=== PATIENT | male | born 1970 | race Caucasian/White ===

== ENCOUNTER 2019-12-08 11:30 | Emergency (ER) | payer OTHER, SELFPAY ==
[2019-12-08] VITALS (14 sets, daily range): BP systolic 74–132; BP diastolic 46–82; PULSE 53–72; RESP 14–22; O2SAT 97–100; BMI 28.0
[2019-12-08] MEDS: SODIUM CHLORIDE 0.9% 1,000 ML 1000 ML IV (11:40)
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
[2019-12-08 11:57] LABS: Add Manual Diff / Slide Review NO; Basophils Absolute Auto 0 /uL (0-100); Basophils Percent Auto 0.2 % (0-2); Eosinophils Absolute Auto 200 /uL (0-450); Eosinophils Percent Auto 2.5 % (2-4); Hematocrit 42.1 % (41-53); Hemoglobin 14.6 g/dL (13.5-17.5); Lymphocytes Absolute Auto 1400 /uL (1100-4500); Lymphocytes Percent Auto 18.2 % (25-40); Mean Corpuscular HGB Conc 34.7 % (30-36); Mean Corpuscular Hemoglobin 31.4 PG (26-34); Mean Corpuscular Volume 90.5 fL (80-100); Monocytes Absolute Auto 600 /uL (0-900); Monocytes Percent Auto 7.5 % (3-14); Neutrophils Absolute Auto 5600 /uL (1500-7000); Neutrophils Percent Auto 71.6 % (50-75); Platelet Count 213 X10^3/uL (150-400); Red Blood Cell Count 4.65 X10^6/uL (4.5-5.9); Red Cell Distribution Width 13.5 % (11.6-14.8); White Blood Cell Count 7.8 X10^3/uL (4.5-11.0)
[2019-12-08] MEDS: KETOROLAC 60 MG/2 ML VIAL 30 MG IV (11:58)
--- NOTE | 2019-12-08 12:00 | ED_ITS ---
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 Days Qty: 10 RF: 0 Referrals: Sony Hare MD [Primary Care Provider] - Marj Hopper MD [Physician] - (Comminuted clavicle fracture)
[2019-12-08 12:09] LABS: Alanine Aminotransferase 24 IU/L (<50); Albumin 4.4 g/dL (3.5-5.0); Albumin Globulin Ratio 1.7 (1.0-2.8); Alkaline Phosphatase 59 U/L (38-126); Aspartate Aminotransferase 37 IU/L (17-59); BUN Creatinine Ratio 13.3 (6-22); Bilirubin Total 1.5 mg/dL (0.2-1.3); Blood Urea Nitrogen 16 mg/dL (9-20); Calcium 9.9 mg/dL (8.4-10.2); Carbon Dioxide 29 mmol/L (22-32); Chloride 105 mmol/L (98-107); Creatine Kinase 354 U/L (55-170); Estimated Glomerular Filt Rate > 60.0 mL/min (>60); Globulin 2.6 g/dL (1.7-4.1); Glucose 117 mg/dL (70-100); HEMOLYSIS < 15 (0-50); Potassium 3.8 mmol/L (3.4-5.1); Sodium 140 mmol/L (137-145)
[2019-12-08 12:21] LABS: Troponin I < 0.012 ng/mL (0.01-0.034)
[2019-12-08 12:25] LABS: CKMB % Relative Index 0.3 % (1.5-5.0); Creatine Kinase MB 0.91 ng/mL (<2.37)
--- NOTE | 2019-12-08 14:11 | PC.NURSE ---
Patient was able to ambulate around the department without lightheadedness or dizziness. His vital signs were stable. He was able to eat crackers and juice without abdominal pain, nausea or vomiting. He was fitted with a large sling and reported that it was comfortable.
== END 2019-12-08 14:11 | disposition home or self-care (01) ==
PROVIDERS: Emergency Provider Nurse Practitioner; PCP Family Medicine
DX: S42.022A Displaced fracture of shaft of left clavicle, initial encounter for closed fracture (principal); I95.9 Hypotension, unspecified; R61 Generalized hyperhidrosis; R07.9 Chest pain, unspecified; V19.3XXA Pedal cyclist (driver) (passenger) injured in unspecified nontraffic accident, initial encounter
CPT/HCPCS: 36415; 70450; 71045; 72125; 73030; 73060; 80053; 82550; 82553; 84484; 85025; 86850; 86900; 86901; 93005; 96361; 96374; 99284; 99285; J1885

== ENCOUNTER → 2019-12-18 14:50 | Outpatient (CLI) | payer OTHER, SELFPAY ==
[2019-12-19 12:17] LABS: COVID19 Sendout Not Detected (Not Detect)
== END ==
PROVIDERS: PCP Family Medicine; Visit Provider Physician Assistant
DX: Z01.812 Encounter for preprocedural laboratory examination (principal)
CPT/HCPCS: 87635

== ENCOUNTER 2019-12-21 10:49 | Day surgery (SDC) | payer OTHER, SELFPAY ==
[2019-12-18 14:28] VITALS: BMI 28.5
[2019-12-21] VITALS (7 sets, daily range): BP systolic 93–136; BP diastolic 51–84; PULSE 62–80; RESP 12–16; TEMP 36.2–36.6; O2SAT 96–100; BMI 27.9
--- NOTE | 2019-12-21 | DI.RAD.S_ITS ---
PROCEDURE: XR CLAVICLE LT INDICATIONS: CLAVICAL REPAIR TECHNIQUE: The four intraoperative fluoroscopic images of the left clavicle. COMPARISON: [facility] MARGE Dorman, XR CLAVICLE LEFT, 12/14/2019, 16:03. FINDINGS: These images demonstrate open repair and internal reduction of the previously seen displaced and comminuted left clavicle fracture, by means of a plate and screw hardware construct. Hardware is in appropriate expected position with no evidence of an acute comp getting hardware feature. IMPRESSION: Expected appearance of left clavicle ORIF. Dictated by: Trenton Arteaga M.D. on 12/21/2019 at 15:14 Approved by: Trenton Arteaga M.D. on 12/21/2019 at 15:15
[2019-12-21] MEDS: LACTATED RINGERS 1,000 ML 42 ML IV ×2 (11:42→13:52)
--- NOTE | 2019-12-21 12:31 | PM.PREOP ---
Pre-operative Note COVID-19 COVID-19 status: Negative Interval Note History & Physical reviewed/Exam performed by Physician: Yes Changes to H&P: No
--- NOTE | 2019-12-21 12:31 | PM.OP.1 ---
Operative Date/Time/Diagnoses Date of procedure: 12/21/19 Time of procedure: 12:59 Pre-op diagnosis: left clavicle fracture Post-op diagnosis: same Procedure & Clinicians Procedure: Open reduction internal fixation left comminuted clavicle fracture. Same procedure as scheduled: Yes Indications: This is a 49-year-old gentleman who fell mountain biking noted the acute onset of pain and deformity of his left arm. He is very physically active we discussed options risks benefits and complications the opted to proceed with the left clavicle open reduction internal fixation. Surgeon: Marj Hopper Kinesiology Professor: Janelle Sanchez Anesthesia Type: General Operative Notes Findings: Comminuted fracture, reasonable quality bone stable fixation Closure Type: primary Specimen(s): none sent Prosthetic devices, grafts, tissues, transplants, or devices: Hopper and Nephew clavicular plate with locking screws and nonlocking screws Estimated Blood Loss (mL): 100 Blood products transfused: none Procedure in detail: He was brought to the operating room and underwent induction of a general anesthesia. He was positioned on the OR table time-out was performed and antibiotics were given. [facility] to [facility] and put him in a beach chair position. We then brought in fluoro and were able to confirm good visualization of the clavicular fracture without overlying shadows. He was prepped and draped in standard sterile fashion. Incision was made over the clavicle dissection was carried out through skin and subcutaneous tissues. Marcaine with epinephrine was injected for hemostasis. Retractors were placed. The fracture was noted to be grossly displaced and shortened. Dissection was carried out down to the fracture. And then a combination of clamps and positioning of the arm as well as traction was used to meticulously reduced the fracture. It was comminuted there was pretty particular comminution at the anterior aspect of the fracture with a butterfly fragment. The fracture was meticulously aligned and I specifically left the soft tissues attached to the butterfly fragment to serve as vascularized bone graft. The fracture was meticulously aligned and then fixed with a Hopper and Nephew clavicular plate placed 1st with 2 nonlocking screws 1 on either side of the fracture to provide compression across the fracture and alignment. It was too comminuted for a lag screw. Fluoroscopy confirmed the reduction and plate position and the remaining screw holes were closed over filled with a combination of locking and nonlocking screws. Repeat x-rays two views of the clavicle confirm position of the plate and the screws. On the most medial screw of relatively short locking screw was used as it was essentially unicortical. The 1 of the butterfly fragments was specifically packed into the fracture fragment site and I then use sutures to pull it up to the screw hole which was left not filled because it was at the fracture site. The wound was meticulously irrigated with normal saline. Marcaine was injected and the wound was closed with interrupted Vicryl and a running Monocryl and Steri-Strips. An Aquacel was applied. Patient was placed in a sling with an ABD pad for his axilla. Complications: none Post-operative Condition: stable Disposition: same day surgery Plan for aftercare: Sling as needed for 3-4 weeks postoperatively. No heavy lifting for 6-8 weeks postoperatively. Two view clavicle x-ray at postop follow-up a 10 days.
[2019-12-21] MEDS: CEFAZOLIN 2 GM/100 ML FROZ.PIGGY IV (13:10)
--- NOTE | 2019-12-21 13:45 | SUR.OPER ---
Beach chair with Malcolm/Liz shoulder positioner. Lower body on padded OR bed. Head in foam padded head cradle, secured with straps. Non-operative arm secured <90 degrees abduction. Pillow under knees. Safety belt at thigh. Cloth tape over blanket over lower legs.
[2019-12-21] MEDS: BUPIVACAINE 0.5% W/ EPI (PF) 10 ML VIAL 20 ML INJ (13:50)
--- NOTE | 2019-12-21 15:34 | SUR.PHASEI ---
Dr. Oconnell spoke with patient x2. Denies pain/nausea, HOB elevated, juice given.
[2019-12-21] MEDS: OXYCODONE IR 5 MG TABLET PO (15:49)
--- NOTE | 2019-12-21 15:51 | SUR.PHASEII ---
Assumed care of pt, medicated with oxycodone after applesauce tolerated.
== END 2019-12-21 16:11 | disposition home or self-care (01) ==
PROVIDERS: PCP Family Medicine; Referring Provider Family Medicine; Visit Provider Orthopaedic Surgery
PROC: 0PSB04Z Reposition Left Clavicle with Internal Fixation Device, Open Approach (ICD-10-PCS; CPT 23515; principal; 2019-12-21 12:45)
DX: S42.022A Displaced fracture of shaft of left clavicle, initial encounter for closed fracture (principal); Y93.55 Activity, bike riding; X58.XXXA Exposure to other specified factors, initial encounter
CPT/HCPCS: 23515; 73000; 76000; J0690; J1100; J1885; J2405; J3010

== ENCOUNTER 2024-12-17 20:47 | Emergency (ER) | payer OTHER, SELFPAY ==
[2024-12-17] VITALS (8 sets, daily range): BP systolic 117–158; BP diastolic 77–100; PULSE 86–105; RESP 10–27; TEMP 36.1; O2SAT 93–98; BMI 27.7
--- NOTE | 2024-12-17 21:01 | ED.GENADULT ---
HPI - General Adult General Chief complaint: Shortness of Breath/Dyspnea Stated complaint: SOB, Chest Tightness Time Seen by Provider: 12/17/24 20:56 Source: patient Mode of arrival: Ambulatory History of Present Illness HPI narrative: 54-year-old gentleman history exercise-induced asthma was walking earlier tonight when he started to cough and became more short of breath and also noticed his lip started to swell. Patient reports also a history of avocado allergy that causes his throat to tickle and he did have some avocados earlier for dinner. Patient denies active chest pain, dyspnea on exertion, leg pain, swelling, sore throat, earache, sinus drainage. Other than what is stated 14 point review of system is negative Related Data Home Medications ?Medication ?Instructions ?Recorded ?Confirmed acetaminophen 500 mg tablet 1,000 mg PO Q6H PRN pain 12/21/19 12/21/19 (Tylenol Extra Strength) albuterol sulfate 90 mcg/actuation 1 inh inhalation QID PRN asthma 12/21/19 12/21/19 aerosol inhaler cholecalciferol (vitamin D3) 50 50 mcg PO DAILY 12/21/19 12/21/19 mcg (2,000 unit) capsule (Vitamin D3) simvastatin 20 mg tablet 20 mg PO BEDTIME 12/21/19 12/21/19 Previous Rx's ?Medication ?Instructions ?Recorded hydrocodone 5 mg-acetaminophen 325 1 tab PO Q4-6H PRN pain #20 tabs 12/21/19 mg tablet ([place]) albuterol sulfate 90 mcg/actuation 2 inh inhalation Q4-6H PRN 12/17/24 breath activated powder shortness of breath or wheezing #1 inhaler,sensor ea epinephrine 0.3 mg/0.3 mL 0.3 mg (0.3 mL) IM Q5-15M PRN 12/17/24 injection, auto-injector anaphylaxis #2 ea famotidine 20 mg tablet (Pepcid) 20 mg PO BID #10 tabs 12/17/24 nirmatrelvir 300 mg (150 mg See Rx Instructions PO .COMPLEX 12/17/24 x2)-ritonavir 100 mg tablet,dose #30 ea pack (Paxlovid) prednisone 20 mg tablet 20 mg PO BID #10 tabs 12/17/24 Allergies Allergy/AdvReac Type Severity Reaction Status Date / Time Penicillins Allergy Mild mild rash Verified 12/17/24 20:54 as a child Review of Systems Review of Systems ROS Unobtainable: All systems reviewed & are unremarkable except as noted in HPI and below Patient History Medical History (Updated 12/17/24 @ 23:10 by Thom Jara DO) Plantar fasciitis of right foot Seasonal allergies Exercise-induced asthma HLD (hyperlipidemia) No pertinent family history Surgical History (Updated 12/21/19 @ 11:35 by Chacha Fraire RN) History of tonsillectomy Social History household members: spouse and children alcohol intake: current alcohol intake frequency: 0-2 drinks per day Alcohol type: beer Exam Narrative Exam Narrative: GENERAL: [54] year old patient appears stated age. Well-developed patient, in mild distress. HEAD: Atraumatic. Normocephalic. EYES: Pupils equal round and reactive. Extraocular motions intact. No scleral icterus. No injection or drainage. ENT: Nose without bleeding, purulent drainage. Throat without erythema, tonsillar hypertrophy or exudate. Airway patent. Lower lip swelling NECK: Trachea midline. Non tender CARDIOVASCULAR: Regular rate and rhythm without murmurs, gallops, or rubs. RESPIRATORY: Clear to auscultation. Breath sounds equal bilaterally. No wheezes, rales, or rhonchi. GASTROINTESTINAL: Abdomen soft, non-tender, nondistended. EXTREMITIES: No edema or joint tenderness. BACK: Nontender without deformity or crepitance. No flank tenderness. NEURO: AOx3. SKIN: No rash or erythema of visible areas Initial Vital Signs Initial Vital Signs: Vital Signs Pulse Rate 86 12/17/24 20:51 Blood Pressure 158/100 H 12/17/24 20:51 Pulse Oximetry 93 12/17/24 20:51 Course Orders Ordered: ED Orders 12/17/24 20:55 Complete Blood Count AUTO DIFF Stat Comprehensive Metabolic Panel Stat Lipase Stat Magnesium Stat NT-proBNP (BNP-Adult 18+) Stat PTT Partial Thromboplastin Juan Stat Prothrombin Time INR Stat Troponin & CK Cardiac Panel Stat 12/17/24 21:02 RT Consult Eval and Treat NOW 12/17/24 21:25 XR chest 1V Stat EKG-12 Lead Stat 12/17/24 22:01 Covid-19 + FLU A/B + RSV - PCR Stat Discontinued Medications Albuterol/Ipratropium (Albuterol/Ipratropium 3 Ml Ampul) 3 ml INH NOW ONE Stop: 12/17/24 21:39 Last Admin: 12/17/24 21:49 Dose: 3 ml Documented By: MADDI Aspirin (Aspirin 81 Mg Chew Tab) 324 mg PO NOW ONE Stop: 12/17/24 21:25 Last Admin: 12/17/24 21:47 Dose: Not Given Documented By: FRANKI Bacitracin (Bacitracin Oint 0.9 Gm Pckt) 1 applic TOP NOW ONE Stop: 12/17/24 21:00 Last Admin: 12/17/24 21:04 Dose: Not Given Documented By: Diphenhydramine HCl (Diphenhydramine 50 Mg/Ml Vial) 50 mg IV NOW ONE Stop: 12/17/24 21:39 Last Admin: 12/17/24 21:48 Dose: 50 mg Documented By: FRANKI Famotidine (Famotidine 20 Mg Tablet) 20 mg PO NOW ONE Stop: 12/17/24 21:01 Last Admin: 12/17/24 21:04 Dose: Not Given Documented By: Famotidine (Famotidine 20 Mg/2 Ml Vial) 20 mg IV NOW [facility] Famotidine (Famotidine 20 Mg/2 Ml Vial) 20 mg IV NOW ONE Stop: 12/17/24 21:46 Last Admin: 12/17/24 21:49 Dose: 20 mg Documented By: FRANKI Methylprednisolone (Methylprednisolone 125 Mg/2 Ml Vial) 125 mg IV NOW ONE Stop: 12/17/24 21:39 Last Admin: 12/17/24 21:48 Dose: 125 mg Documented By: FRANKI Vital Signs Vital signs: Vital Signs - 8 hr 12/17/24 20:51 12/17/24 20:51 12/17/24 20:54 Temperature 97 F L Pulse Rate 86 91 H Respiratory Rate 22 Blood Pressure 158/100 H 158/100 H Pulse Oximetry 93 95 Oxygen Delivery Method Room Air Oxygen Flow Rate Fraction of Inspired Oxygen 12/17/24 20:55 12/17/24 20:55 12/17/24 21:00 Temperature Pulse Rate 88 88 Respiratory Rate 27 H 27 H Blood Pressure 150/96 H Pulse Oximetry 94 96 Oxygen Delivery Method Room Air Oxygen Flow Rate Fraction of Inspired Oxygen 12/17/24 21:00 12/17/24 21:49 Temperature Pulse Rate 105 H Respiratory Rate 20 Blood Pressure 158/94 H Pulse Oximetry 98 Oxygen Delivery Method Room Air Oxygen Flow Rate 0 Fraction of Inspired Oxygen 21 Medical Decision Making Lab Data 12/17/24 20:55 12/17/24 20:55 Labs: Lab Results 12/17/24 Range/Units 20:55 WBC 4.3 L (4.5-11.0) X10^3/uL RBC 4.90 (4.5-5.9) X10^6/uL Hgb 14.8 (13.5-17.5) g/dL Hct 43.9 (41-53) % MCV 89.6 (80-100) fL MCH 30.2 (26-34) PG MCHC 33.7 (30-36) % RDW 13.7 (11.6-14.8) % Plt Count 243 (150-400) X10^3/uL Neut % (Auto) 36.3 L (50-75) % Lymph % (Auto) 43.8 H (25-40) % [place] % (Auto) 10.9 (3-14) % Eos % (Auto) 8.5 H (2-4) % Baso % (Auto) 0.5 (0-2) % Neut # (Auto) 1600 (7117-6479) /uL Lymph # (Auto) 1900 (1762-5336) /uL [place] # (Auto) 500 (0-900) /uL Eos # (Auto) 400 (0-450) /uL Baso # (Auto) 0 (0-100) /uL PT 11.6 (9.4-12.5) SECONDS INR 1.0 (0.9-1.3) APTT 29 (25.1-36.5) SECONDS Sodium 141 (137-145) mmol/L Potassium 3.7 (3.4-5.1) mmol/L Chloride 106 (98-107) mmol/L Carbon Dioxide 27 (22-32) mmol/L BUN 18 (9-20) mg/dL Creatinine 0.87 (0.66-1.25) mg/dL Estimated GFR > 60 (>60) mL/min BUN/Creatinine Ratio 20.7 (6-22) Glucose 121 H (70-99) mg/dL Calcium 9.4 (8.4-10.2) mg/dL Magnesium 2.0 (1.6-2.3) mg/dL Total Bilirubin 1.5 H (0.2-1.3) mg/dL AST 28 (17-59) IU/L ALT 19 (<50) IU/L Alkaline Phosphatase 59 (38-126) U/L Total Creatine Kinase 167 (55-170) U/L Troponin I < 0.012 (0.01-0.034) ng/mL NT-Pro-B Natriuret Pep < 20 (<125) pg/mL Total Protein 7.1 (6.3-8.2) g/dL Albumin 4.4 (3.5-5.0) g/dL Globulin 2.7 (1.7-4.1) g/dL Albumin/Globulin Ratio 1.6 (1.0-2.8) Lipase 217 (23-300) U/L Imaging Data Chest x-ray: Radiologist's Impression: [place] [address] XRay Report Signed Patient: Erick Perea MR#: [id number] : 1970 Acct:[id number] Age/Sex: 54 / M Date of Service: 12/17/24 Loc: ED Accession Number: [id number] Procedure: XR chest 1V Ordering Provider: Thom Jara D.O. PROCEDURE: XR CHEST 1V INDICATIONS: Chest Pain TECHNIQUE: One view of the chest was acquired. COMPARISON: None. FINDINGS: Surgical changes and devices: None. Lungs and pleura: Lungs are clear. No pleural effusions or pneumothorax. Mediastinum: Mediastinal contours appear normal. Heart size is normal. Bones and chest wall: No suspicious bony lesions. Overlying soft tissues appear unremarkable. IMPRESSION: No acute cardiopulmonary abnormality is seen. Approved by: Alexandra Randle M.D.,Ph.D. on 12/17/2024 at 22:27 MDM Narrative Medical decision making narrative: Vital signs nurse triage note medication list previous ER visits in all imaging studies reviewed. Chest x-ray showed no acute process. WBC 4.3 but normal hemoglobin and platelets, T bili 1.5 but was 1.5 also in November of 2019. BNP less than 20. Patient given Benadryl Pepcid Solu-Medrol here. Swelling of lips has gone down patient feels much better on reexamination. Differential diagnosis includes anaphylaxis asthma exacerbation allergic reaction. Will DC home on Paxlovid prednisone Pepcid albuterol refill and EpiPen. Will follow up with PCP in 1-2 weeks Discharge Plan Departure Patient Disposition: Home Clinical Impression: COVID-19 Allergic reaction Qualifiers: Encounter type: initial encounter Qualified Code(s): T78.40XA - Allergy, unspecified, initial encounter Activity Restrictions/Additional Instructions: Return with new or worsening symptoms. Take your medicines as directed. Follow up PCP in 1-2 weeks. Prescriptions: New prednisone 20 mg tablet 20 mg PO BID Qty: 10 0RF famotidine [Pepcid] 20 mg tablet 20 mg PO BID Qty: 10 0RF albuterol sulfate 90 mcg/actuation aero powdr breath act w/sensor 2 inh inhalation Q4-6H PRN (Reason: shortness of breath or wheezing) Qty: 1 0RF Paxlovid 300 mg (150 mg x 2)-100 mg tablets,dose pack See Rx Instructions .ROUTE .COMPLEX Qty: 30 0RF Rx Instructions: take TWO 150 mg tablets of nirmatrelvir with ONE 100 mg tablet of ritonavir twice daily for 5 days epinephrine 0.3 mg/0.3 mL auto-injector 0.3 mg IM Q5-15M PRN (Reason: anaphylaxis) Qty: 2 0RF Rx Instructions: do not exceed 3 doses per episode No Action acetaminophen [Tylenol Extra Strength] 500 mg Tablet 1,000 mg PO Q6H PRN (Reason: pain) simvastatin 20 mg Tablet 20 mg PO BEDTIME cholecalciferol (vitamin D3) [Vitamin D3] 50 mcg (2,000 unit) Capsule 50 mcg PO DAILY albuterol sulfate 90 mcg/actuation Hfa Aerosol Inhaler 1 inh INHALATION QID PRN (Reason: asthma) Patient Comments: hasn't used for at least a month; doesn't recall name of long-term inhaler, also hasn't used in months. hydrocodone-acetaminophen [[place]] 5-325 mg tablet 1 tab PO Q4-6H PRN (Reason: pain) Qty: 20 0RF Referrals: Sony Hare MD [Primary Care Provider, Family Practice] Stand Alone Forms: Patient Portal/API
--- NOTE | 2024-12-17 21:25 | DI.RAD.S_ITS ---
PROCEDURE: XR CHEST 1V INDICATIONS: Chest Pain TECHNIQUE: One view of the chest was acquired. COMPARISON: None. FINDINGS: Surgical changes and devices: None. Lungs and pleura: Lungs are clear. No pleural effusions or pneumothorax. Mediastinum: Mediastinal contours appear normal. Heart size is normal. Bones and chest wall: No suspicious bony lesions. Overlying soft tissues appear unremarkable. IMPRESSION: No acute cardiopulmonary abnormality is seen. Approved by: Alexandra Randle M.D.,Ph.D. on 12/17/2024 at 22:27
--- NOTE | 2024-12-17 21:25 | EKG_ITS ---
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
[2024-12-17 21:33] LABS: Prothrombin Time 11.6 SECONDS (9.4-12.5)
[2024-12-17 21:35] LABS: Add Manual Diff / Slide Review NO; Basophils Absolute Auto 0 /uL (0-100); Basophils Percent Auto 0.5 % (0-2); Eosinophils Absolute Auto 400 /uL (0-450); Eosinophils Percent Auto 8.5 % (2-4); Hematocrit 43.9 % (41-53); Hemoglobin 14.8 g/dL (13.5-17.5); Lymphocytes Absolute Auto 1900 /uL (1100-4500); Lymphocytes Percent Auto 43.8 % (25-40); Mean Corpuscular HGB Conc 33.7 % (30-36); Mean Corpuscular Hemoglobin 30.2 PG (26-34); Mean Corpuscular Volume 89.6 fL (80-100); Monocytes Absolute Auto 500 /uL (0-900); Monocytes Percent Auto 10.9 % (3-14); Neutrophils Absolute Auto 1600 /uL (1500-7000); Neutrophils Percent Auto 36.3 % (50-75); Platelet Count 243 X10^3/uL (150-400); Red Cell Distribution Width 13.7 % (11.6-14.8); White Blood Cell Count 4.3 X10^3/uL (4.5-11.0)
[2024-12-17 21:36] LABS: PTT Partial Thromboplastin Tim 29 SECONDS (25.1-36.5)
[2024-12-17 21:37] LABS: Alanine Aminotransferase 19 IU/L (<50); Albumin 4.4 g/dL (3.5-5.0); Albumin Globulin Ratio 1.6 (1.0-2.8); Alkaline Phosphatase 59 U/L (38-126); Aspartate Aminotransferase 28 IU/L (17-59); BUN Creatinine Ratio 20.7 (6-22); Bilirubin Total 1.5 mg/dL (0.2-1.3); Blood Urea Nitrogen 18 mg/dL (9-20); Calcium 9.4 mg/dL (8.4-10.2); Carbon Dioxide 27 mmol/L (22-32); Chloride 106 mmol/L (98-107); Creatine Kinase 167 U/L (55-170); Estimated Glomerular Filt Rate > 60 mL/min (>60); Globulin 2.7 g/dL (1.7-4.1); Glucose 121 mg/dL (70-99); HEMOLYSIS 20 (0-50); Lipase 217 U/L (23-300); Potassium 3.7 mmol/L (3.4-5.1); Sodium 141 mmol/L (137-145); Total Protein 7.1 g/dL (6.3-8.2)
[2024-12-17] MEDS: methylPREDNISolone 125 MG/2 ML VIAL IV (21:48)
[2024-12-17] MEDS: diphenhydrAMINE 50 MG/ML VIAL IV (21:48)
[2024-12-17 21:49] LABS: NT-proBNP (BNP-Adult 18+) < 20 pg/mL (<125); Troponin I < 0.012 ng/mL (0.01-0.034)
[2024-12-17] MEDS: ALBUTEROL/IPRATROPIUM 3 ML AMPUL INH (21:49)
[2024-12-17] MEDS: FAMOTIDINE 20 MG/2 ML VIAL IV (21:49)
[2024-12-17 22:43] LABS: Influenza A - CEPHEID Flu A NEGATIVE (NEGATIVE); Influenza B - CEPHEID Flu B NEGATIVE (NEGATIVE); Respiratory Syncytial Virus Negative (Negative)
[2024-12-17 23:03] LABS: COVID-19 CEPHEID 4-PLEX PCR POSITIVE (Negative)
== END 2024-12-17 23:31 | disposition home or self-care (01) ==
PROVIDERS: Emergency Provider Family Medicine; PCP Family Medicine
DX: U07.1 COVID-19 (principal); T78.40XA Allergy, unspecified, initial encounter; R07.9 Chest pain, unspecified
CPT/HCPCS: 0241U; 36415; 71045; 80053; 82550; 83690; 83735; 83880; 84484; 85025; 85610; 85730; 93005; 93010; 94640; 96374; 96375; 99284; J1200; J2919